=== PATIENT | male | born 1975 | race Caucasian/White ===

== ENCOUNTER 2019-09-23 07:17 | Outpatient (REF) | payer OTHER, SELFPAY ==
[2019-09-23 13:02] LABS: HGB 15.7 g/dL (13.5-17.5); Mean Corp. HGB Concentration 33.4 g/dL (32.0-36.0); Mean Corpuscular Hemoglobin 28.9 pg (27.0-33.0); Mean Corpuscular Volume 86.6 fL (80-95); Mean Platelet Volume 9.9 fL (8.0-11.0); Platelet Count 277 x1000/uL (130-400); RBC 5.43 m/cumm (4.50-6.00); RBC Distribution Width 13.6 % (11.8-14.1); White Blood Cell Count 7.98 k/cumm (4.4-10.8)
[2019-09-23 14:02] LABS: ALT 69 U/L (16-63); AST 22 U/L (15-37); Albumin 4.1 g/dL (3.4-5.0); Alkaline Phosphatase 126 U/L (46-116); Anion Gap 9.9 mmol/L (3-11); BUN 14 mg/dL (7-18); Bilirubin, Total 0.6 mg/dL (0.2-1.0); CO2 29.1 mmol/L (21.0-32.0); Calcium 9.1 mg/dL (8.5-10.1); Calculated LDL 128 mg/dL; Chloride 105 mmol/L (98-107); Cholesterol 214 mg/dL (<200); Glucose 88 mg/dL (74-106); HDL Cholesterol 32 mg/dL (40-60); Potassium 4.8 mmol/L (3.5-5.1); Sodium 144 mmol/L (136-145); Total Protein 7.3 g/dL (6.4-8.2); Triglyceride 273 mg/dL (<150)
== END 2019-09-23 07:37 ==
LOC: LOS 07:17
PROVIDERS: PCP Family Medicine; Visit Provider Family Medicine
DX: R53.83 Other fatigue (principal); Z13.220 Encounter for screening for lipoid disorders
CPT/HCPCS: 36415; 80053; 80061; 85027; 84443

== ENCOUNTER 2020-10-28 03:06 | Outpatient (CLI) | payer OTHER, SELFPAY ==
[2020-10-28 15:15] LABS: ALT 59 U/L (16-63); AST 24 U/L (15-37); Albumin 4.5 g/dL (3.4-5.0); Alkaline Phosphatase 117 U/L (46-116); Anion Gap 11.7 mmol/L (3-11); BUN 14 mg/dL (7-18); Bilirubin, Total 0.9 mg/dL (0.2-1.0); CO2 28.3 mmol/L (21.0-32.0); Calcium 9.4 mg/dL (8.5-10.1); Calculated LDL 202 mg/dL (<100); Chloride 102 mmol/L (98-107); Cholesterol 287 mg/dL (<200); Glucose 92 mg/dL (74-106); HDL Cholesterol 36 mg/dL (40-60); Magnesium 2.1 mg/dL (1.8-2.4); Potassium 4.1 mmol/L (3.5-5.1); Sodium 142 mmol/L (136-145); Triglyceride 247 mg/dL (<150)
[2020-10-28 15:26] LABS: HCT 50.1 % (40.0-50.0); HGB 16.9 g/dL (13.5-17.5); MCH 29.5 pg (27.0-33.0); MCHC 33.7 % (32.0-36.0); MCV 87.6 fL (80-95); MPV 10.1 fL (8.0-11.0); Platelet Count 279 10^3/uL (130-400); RBC 5.72 10^6/uL (4.36-5.78); RDW 13.2 % (11.8-14.1); WBC 8.73 10^3/uL (4.4-10.8)
== END 2020-10-28 03:07 | disposition home or self-care (01) ==
LOC: LBO 03:06
PROVIDERS: PCP Family Medicine; Visit Provider Family Medicine
DX: I10 Essential (primary) hypertension (principal); K22.70 Barrett's esophagus without dysplasia; E83.42 Hypomagnesemia
CPT/HCPCS: 36415; 80053; 80061; 85027; 83735

== ENCOUNTER 2021-04-08 04:52 | Outpatient (CLI) | payer OTHER, SELFPAY ==
[2021-04-08 16:05] LABS: Calculated LDL 119 mg/dL (<100); Cholesterol 179 mg/dL (<200); HDL Cholesterol 38 mg/dL (40-60); Triglyceride 112 mg/dL (<150)
== END 2021-04-08 04:53 | disposition home or self-care (01) ==
LOC: LBO 04:52
PROVIDERS: PCP Family Medicine; Visit Provider Family Medicine
DX: E78.5 Hyperlipidemia, unspecified (principal)
CPT/HCPCS: 36415; 80061

== ENCOUNTER 2021-07-26 15:43 | Emergency (ER) | payer OTHER, SELFPAY ==
[2021-07-26 15:48] VITALS: BP 163/97; PULSE 122; RESP 16; TEMP 36.9; O2SAT 99
--- NOTE | 2021-07-26 16:32 | W.ED.GENAD ---
Discharge Plan Disposition Patient Disposition: HOME Condition: Stable Discharge Details Clinical Impression: Abdominal pain Primary Care Provider: Luis Perrin ED Provider: Shahzad Schulte Home Meds and New Rx's Prescriptions: Continued albuterol sulfate [ProAir HFA] 90 mcg/actuation HFA aerosol inhaler 2 puff Inhalation prior to exercise PRN (Reason: bronchospasm) Qty: 1 RF: 3 esomeprazole magnesium 20 mg capsule,delayed release(DR/EC) 20 mg PO DAILY Qty: 90 RF: 4 rosuvastatin [Crestor] 5 mg tablet 5 mg PO DAILY Qty: 90 RF: 4 lisinopril 10 mg tablet 20 mg PO DAILY Qty: 90 RF: 4 Hold Instructions: Home Medication placed on hold at Doctor's office Discharge Instructions Instructions: Abdominal Pain (ED) Additional Instructions: Please follow-up with your primary care physician. Call tomorrow to arrange timely follow-up. If pain persists, additional diagnostic testing may be necessary. Return to the emergency department immediately for any worsening or new concerning symptoms. Referrals: Luis Perrin MD [Primary Care Provider] - Discharge Data Discharge Date/Time-TO BE ENTERED AT DEPARTURE: 07/26/21 19:38 Medical Decision Making 1748 --46-year-old male with history of hypertension and hyperlipidemia, prior cholecystectomy, here with right upper quadrant abdominal pain but has had intermittently for months and much worse today. Patient is tachycardic and hypertensive. Patient minimally tender to deep palpation right upper quadrant. Patient does note pain is moderate to severe. Plan to obtain CT of the abdomen pelvis with IV contrast to assess for acute intra-abdominal surgical process Patient also with some mild paresthesia right gnosticist area. He has no associated headache or visual changes. No associated rash. Unclear etiology for symptoms at this point. Consider early zoster. I did discuss this with the patient what to look out for to 1853 --CT the abdomen pelvis was interpreted by radiology: IMPRESSION: No evidence of acute abdominal or pelvic process. Labs reviewed and nondiagnostic. Patient reassessed and pain has improved. He appears comfortable. Patient notes heart rate is always elevated. He states that it recent primary care appointment his physician looked back through record and noted heart rate has been above 100 for years. Plan for discharge with outpatient PCP follow-up. HPI General Mode of arrival: ambulatory. Date/Time Provider Initiated Documentation: 07/26/21 15:57. Limitations to Documentation: no limitations. Information obtained by: patient. HPI Narrative: 46-year-old male with history of hypertension and hyperlipidemia, prior cholecystectomy, presents with chief complaint of right upper quadrant abdominal pain. Patient notes she has had intermittent pain in his right upper quadrant that is typically mild for the past few months. Pain more persistent and severe today. No modifiers. No associated nausea vomiting. No fever. Patient also notes some mild tingling right gnosticist that started a couple days ago and has persisted. No associated rash. No weakness. No other numbness or tingling. No headache. No visual changes. Related Data Home Medications Medication Instructions Recorded Confirmed albuterol sulfate 90 mcg/actuation 2 puff INHALATION prior to 12/16/20 07/26/21 aerosol inhaler exercise PRN #1 inhaler esomeprazole magnesium 20 mg 20 mg PO DAILY #90 cap 12/16/20 07/26/21 capsule,delayed release rosuvastatin 5 mg tablet 5 mg PO DAILY #90 tab 04/12/21 07/26/21 lisinopril 10 mg tablet 20 mg PO DAILY #90 tab 07/05/21 07/26/21 Previous Rx's Medication Instructions Recorded albuterol sulfate 90 mcg/actuation 2 puff INHALATION prior to 12/16/20 aerosol inhaler exercise PRN #1 inhaler esomeprazole magnesium 20 mg 20 mg PO DAILY #90 cap 12/16/20 capsule,delayed release rosuvastatin 5 mg tablet 5 mg PO DAILY #90 tab 04/12/21 lisinopril 10 mg tablet 20 mg PO DAILY #90 tab 07/05/21 Allergies Allergy/AdvReac Type Severity Reaction Status Date / Time peach Allergy Severe difficulty Verified 07/26/21 19:02 swallowing Environmental Allergy Intermediate rhinorrhea Uncoded 07/26/21 19:02 General Stated Complaint: GenMedical PRAVEENA: 3 Review of Systems All systems reviewed & are unremarkable except as noted in HPI and below Constitutional Constitutional: Denies fever(s) Cardiovascular Cardiovascular: Denies chest pain and Denies dyspnea Respiratory Respiratory: Denies cough and Denies dyspnea Gastrointestinal Gastrointestinal: Reports as per HPI [facility] Active Problem List Essential hypertension (Acute) Hyperlipidemia (Acute) Leal esophagus (Acute) Essential hypertension (Acute) URI (upper respiratory infection) (Acute) Conjunctivitis (Acute) Surgical History Cholecystectomy (06/20/14) Repair, ACL (~2002) Family History Mother Diabetes Father Diabetes Heart disease Sister No problems noted. Brother No problems noted. Brother No problems noted. Grandfather Diabetes Personal history of malignant neoplasm PROSTATE Heart disease Grandfather Diabetes Grandmother Diabetes Heart disease Grandmother No problems noted. Social History Smoking/Tobacco Use Status: Never Second Hand Exposure: Yes Smoking risk assessment performed?: Yes Alcohol Intake: current Alcohol Intake frequency: a few times a month Alcohol type: beer and hard liquor Drug use: Never Adopted: No Household members: family Housing: house Do you need help understanding health information?: Rarely Pets and animals: Yes Pets and animals: cat(s) and fish Sexually active: Yes Do you think of yourself as: straight/heterosexual Current gender identity: male What is your relationship status?: How often do you talk on the phone with friends or family?: never How often do you get together with friends or relatives?: three or more times per week How often do you attend religious or scientologist services?: 1-3 times per year Panel score (0-1 are the most socially isolated patients): 2 What type of physical activity do you participate in: walking Duration: 15-30 minutes/day Frequency: 3-4 times per week Alice/Spiritism: No preference Special alice needs: No Seatbelt use: always Helmet use: Yes Helmet use: always Drive intox 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 Exam Const General: cooperative and no acute distress HENMT Head: normocephalic and atraumatic Face and sinus: normal facial exam and face symmetric Mouth: moist mucous membranes Eyes Conjunctivae: normal conjunctivae Sclera: normal sclerae Neck Neck: trachea midline and supple Resp Auscultation: clear to auscultation bilaterally, no rales, no rhonchi and no wheezes Cardio Rate: tachycardic Rhythm: regular rhythm Heart Sounds: no murmurs GI Palpation: soft, not firm, no guarding, no masses, not rigid, tender in the RUQ and No ascites Auscultation: normal bowel sounds Skin General skin exam: no rashes or lesions noted Neuro General: patient alert, patient awake, patient oriented x3 and tone normal Extrem General: no calf tenderness and no edema Psych Appearance: grossly normal Mental Status: mental status grossly normal Speech and Movement: speech and movement normal Course Vital Signs Vital signs: Vital Signs Temperature 36.9 C 07/26/21 15:48 Pulse 122 H 07/26/21 15:48 Respiratory Rate 16 07/26/21 15:48 Blood Pressure 163/97 H 07/26/21 15:48 Pulse Oximetry 99 07/26/21 15:48 Temperature 36.9 C 07/26/21 15:48 Temperature Source Skin 07/26/21 15:48 Pulse 122 H 07/26/21 15:48 Respiratory Rate 16 07/26/21 15:48 Respiratory Effort Non-Labored 07/26/21 16:01 Respiratory Depth Normal 07/26/21 16:01 Respiratory Pattern Normal 07/26/21 16:01 Blood Pressure 163/97 H 07/26/21 15:48 Blood Pressure Position Sitting 07/26/21 15:48 Pulse Oximetry 99 07/26/21 15:48 Oxygen Delivery Method Room Air 07/26/21 15:48 Oxygen Flow Rate 0 07/26/21 15:48 Pain Level 7 07/26/21 15:48 PAWSS Have you Been Recently Intoxicated or Drunk Within the Last 30 days?: No Have you Ever Experienced Previous Episodes of Alcohol Withdrawal?: No Have you ever Experienced Withdrawal Seizures?: No Have you ever Experienced Delirium Tremens(DT)s?: No Have you ever undergone Alcohol Rehabilitation Treatment (i.e, inpt ot outpatient treatment programs)?: No Have you ever Experienced Blackouts?: No Have you ever Combined Alcohol with other Downers within the last 90 days?: No Have you ever Combined Alcohol with any other Substance of Abuse during the last 90 days?: No Positive Blood Alcohol level on Presentation? [PCS.BAL]: No Evidence of Increased Autonomic Activity (i.e. HR>120, tremor, sweating, agitation, nausea)?: No Result: 0
[2021-07-26 16:33] LABS: Abs Immature Grans 0.02 10^3/uL (0.0-0.06); Absolute Basophil Count 0.04 10^3/uL (0.0-0.2); Absolute Eosinophil Count 0.16 10^3/uL (0.0-0.7); Absolute Lymphocyte Count 2.05 10^3/uL (1.2-3.4); Absolute Monocyte Count 0.61 10^3/uL (0.1-0.8); Absolute Neutrophil Count 6.28 10^3/uL (1.2-6.7); Basophils % 0.4; Eosinophils % 1.7; HCT 47.9 % (40.0-50.0); HGB 15.9 g/dL (13.5-17.5); Immature Grans % 0.2; Lymphocytes % 22.4; MCH 29.1 pg (27.0-33.0); MCHC 33.2 % (32.0-36.0); MCV 87.6 fL (80-95); MPV 9.8 fL (8.0-11.0); Monocytes % 6.7; Neutrophils % 68.6; Nucleated RBC 0 %; Platelet Count 258 10^3/uL (130-400); RBC 5.47 10^6/uL (4.36-5.78); RDW 12.8 % (11.8-14.1); RDW-SD 41.2 fL; WBC 9.16 10^3/uL (4.4-10.8)
[2021-07-26 16:47] LABS: ALT 55 U/L (16-63); AST 26 U/L (15-37); Albumin 4.3 g/dL (3.4-5.0); Alkaline Phosphatase 117 U/L (46-116); Anion Gap 9.8 mmol/L (3-11); BUN 13 mg/dL (7-18); Bilirubin, Total 0.6 mg/dL (0.2-1.0); CO2 27.2 mmol/L (21.0-32.0); Calcium 9.2 mg/dL (8.5-10.1); Chloride 104 mmol/L (98-107); Glucose 124 mg/dL (74-106); Lipase 78 U/L (73-393); Sodium 141 mmol/L (136-145); Total Protein 7.7 g/dL (6.4-8.2)
[2021-07-26 17:17] VITALS: BP 148/90; PULSE 118; RESP 18; TEMP 35.3; O2SAT 96
[2021-07-26 17:25] VITALS: BP 161/97; PULSE 112; RESP 16; TEMP 36.6; O2SAT 100
[2021-07-26] MEDS: Lactated Ringers 500 ML IV (18:00)
--- NOTE | 2021-07-26 18:03 | DI.CT_ITS ---
Exam(s) CT ABDOMEN PELVIS W EXAM: CT ABDOMEN PELVIS W CLINICAL HISTORY: ruq abd pain TECHNIQUE: COMPARISON: No exams were available for comparison FINDINGS: CT examination of the abdomen and pelvis was performed with bolus infusion of 100 cc of Omnipaque 350 . Images obtained through the lung bases are unremarkable. Visualized cardiomediastinal structures appear intact no evidence disease pulmonary arterial. Note i s made questionable distal esophagus esophagoscopy considered. The liver appears normal with no evidence of a focal mass. Spleen is unremarkable in appearance.. Prior cholecystectomy noted. No biliary dilatation. Pancreas is unremarkable in appearance. Adrenals appear normal bilaterally. Kidneys appear normal with no evidence of renal mass, hydronephrosis, or nephrolithiasis. Incidental small cyst. Unremarkable bladder. There is no evidence of abdominal or pelvic adenopathy. Abdominal aorta is of normal diameter and no abnormality is seen involving major visceral branches.. Appendix is normal. No evidence diverticulitis or bowel obstruction. No significant abdominal wall hernia seen. Impression: Question wall thickening esophagitis not excluded. Otherwise unremarkable examination. RADIATION DOSE DELIVERED: 1,601.89mGy.cm Total DLP 1,601.89mGy.cm Total DLP CTDIvol DATA REPOSITORY: All CT scans at this facility are submitted to the National Radiology Data Registry (NRDR) Dose Index Registry (DIR) with the [employer] (ACR). RADIATION OPTIMIZATION: All CT scans at this facility use at least one of these dose optimization te chniques: automated exposure control; mA and/or kV adjustment per patient size (includes targeted exa ms where dose is matched to clinical indication); or iterative reconstruction.
[2021-07-26] MEDS: Normal Saline - Diluent 50 ML VIAL IV (18:04)
[2021-07-26] MEDS: Omnipaque 350 MG/ML 100 ML BTL IJ (18:04)
[2021-07-26 18:10] VITALS: BP 144/105; PULSE 114
[2021-07-26 18:11] VITALS: BP 144/94; PULSE 116; RESP 16; TEMP 36.6
--- NOTE | 2021-07-26 18:39 | DI.VRAD_ITS ---
PROCEDURE INFORMATION: Exam: CT Abdomen And Pelvis With Contrast Exam date and time: 07/26/2021 4:32 PM Age: 46 years old Clinical indication: Abdominal pain; Generalized; Patient HX: Ruq abd pain TECHNIQUE: Imaging protocol: Computed tomography of the abdomen and pelvis with contrast. Radiation optimization: All CT scans at this facility use at least one of these dose optimization techniques: automated exposure control; mA and/or kV adjustment per patient size (includes targeted exams where dose is matched to clinical indication); or iterative reconstruction. Contrast material: OMNI 350; Contrast volume: 100 ml; Contrast route: INTRAVENOUS (IV); COMPARISON: No relevant prior studies available. FINDINGS: Lungs: The visualized portions of the lung bases are normal. Liver: Normal. No mass. Gallbladder and bile ducts: There has been a cholecystectomy. Pancreas: Normal. No ductal dilation. Spleen: Normal. No splenomegaly. Adrenal glands: Normal. No mass. Kidneys and ureters: Cortical hypodensity measuring 1.1 cm within the upper pole of the right kidney compatible with a renal cyst. Otherwise the kidneys are unremarkable. No hydronephrosis. Stomach and bowel: Unremarkable. No obstruction. No mucosal thickening. Appendix: No evidence of appendicitis. Intraperitoneal space: Unremarkable. No free air. No significant fluid collection. Vasculature: Unremarkable. No abdominal aortic aneurysm. Lymph nodes: Unremarkable. No enlarged lymph nodes. Urinary bladder: Unremarkable as visualized. Reproductive: Unremarkable as visualized. Bones/joints: Unremarkable. No acute fracture. Soft tissues: Unremarkable. IMPRESSION: No evidence of acute abdominal or pelvic process. Dictated and Authenticated by: Pio Gallagher MD. Ordering:PARMINDER Pike MD
== END 2021-07-26 19:38 | disposition home or self-care (01) ==
PROVIDERS: Emergency Provider Student in an Organized Health Care Education/Training Program; PCP Family Medicine
DX: R10.11 Right upper quadrant pain (principal); R00.0 Tachycardia, unspecified; I10 Essential (primary) hypertension; R20.2 Paresthesia of skin
CPT/HCPCS: 36415; 80053; 83690; 96360; 99285; 74177; 85025; 99284; J3490

== ENCOUNTER 2021-12-15 14:18 | Emergency (ER) | payer OTHER, SELFPAY ==
[2021-12-15] VITALS (43 sets, daily range): BP systolic 125–141; BP diastolic 74–92; PULSE 69–101; RESP 14–25; TEMP 37.1–37.2; O2SAT 92–98
--- NOTE | 2021-12-15 14:15 | RT.EKG_ITS ---
APPROVED REPORT Exam: Resting ECG Reason for Exam: chest pain Patient Location: E HR:98 bpm ECG Measurements Heart Rate 98 AXIS NJ 156 P 48 QRSd 102 QRS -21 QT 355 T 71 QTc 454 Conclusion Sinus rhythm...normal P axis, V-rate 60- 99 no STEMI, non-diagnostic EKG
[2021-12-15] MEDS: Aspirin 81 MG CHEW 324 MG CH (14:39)
--- NOTE | 2021-12-15 14:39 | ED.GENADUL_ITS ---
Discharge Plan Disposition Patient Disposition: STILL A PATIENT Discharge Details Chief Complaint: Chest Pain Primary Care Provider: Luis Perrin ED Provider: Tevin Payan Home Meds and New Rx's Prescriptions: No Action albuterol sulfate [ProAir HFA] 90 mcg/actuation HFA aerosol inhaler 2 puff Inhalation prior to exercise PRN (Reason: bronchospasm) Qty: 1 3RF esomeprazole magnesium 20 mg capsule,delayed release(DR/EC) 20 mg PO DAILY Qty: 90 4RF metoprolol succinate 25 mg tablet extended release 24 hr 25 mg PO DAILY Qty: 90 3RF rosuvastatin [Crestor] 5 mg tablet 5 mg PO DAILY Qty: 90 4RF lisinopril 20 mg tablet 20 mg PO DAILY Qty: 90 3RF Medical Decision Making 46-year-old gentleman presents for intermittent 1 month history of anterior superior chest discomfort, nothing makes it worse or better. Denies any sympt oms associated with his chest discomfort. Today he felt as if the chest pain in general is worse than it has been over the past month which prompted his ER visit. Clinically he appears well, nontoxic, during my examination his heart rate is in the 80s but upon presentation his pulse was 101. Will initiate cardiac work-up including a D-dimer, and give a single full dose aspirin. If dimer is positive will obtain CTA of the chest although based upon his presentation low suspicion for ACS, dissection, PE, etc. At time of sign out, laboratory values have been unremarkable for any obvious emergent process. Troponin less than 50. D-dimer 212. Will give a single dose of Toradol. Patient is agreeable to awaiting a delta troponin. If delta troponin is unremarkable and patient remained stable, then likely outpatient follow-up through PCP and stress test is reasonable Medical Records Medical records reviewed: Yes I reviewed the patient's medical records. Imaging Data Radiologic Study: Attestation: I personally reviewed and interpreted this imaging study as macy metz: Imaging: X-Ray Radiologist's impression: Exam(s) XR CHEST 2V PA LATERAL EXAM: XR CHEST 2V PA LATERAL CLINICAL HISTORY: chest pain TECHNIQUE: 2D digital imaging was performed. COMPARISON: CR CHEST 2 VIEWS PA,LAT from 10/29/2013 FINDINGS: MEDIASTINUM: Normal. HEART: Normal. PULMONARY VASCULATURE: Normal. LUNGS: Clear. PLEURAL SPACE: No pleural effusion or pneumothorax. BONE:Unremarkable for age. IMPRESSION: No acute abnormality. Lab Data Lab results reviewed: Yes I reviewed the patient's lab results. Labs: Laboratory Tests Range/Units 12/15/21 12/15/21 12/15/21 14:46 14:46 14:46 WBC (4.4-10.8) 10^3/uL 7.47 RBC (4.36-5.78) 10^6/uL 5.19 Hgb (13.5-17.5) g/dL 15.1 Hct (40.0-50.0) % 45.6 MCV (80-95) fL 87.9 MCH (27.0-33.0) pg 29.1 MCHC (32.0-36.0) % 33.1 RDW (11.8-14.1) % 13.2 Plt Count (130-400) 10^3/uL 221 MPV (8.0-11.0) fL 9.8 Immature Gran % 0.4 Neutrophils % 57.7 Lymphocytes % 31.2 Monocytes % 8.6 Eosinophils % 1.6 Basophils % 0.5 Nucleated RBC % % 0 Absolute Neutrophils (1.2-6.7) 10^3/uL 4.31 Absolute Lymphocytes (1.2-3.4) 10^3/uL 2.33 Absolute Monocytes (0.1-0.8) 10^3/uL 0.64 Absolute Eosinophils (0.0-0.7) 10^3/uL 0.12 Absolute Basophils (0.0-0.2) 10^3/uL 0.04 D-Dimer (<500) ng/mlFEU 212 Sodium (136-145) mmol/L 139 Potassium (3.5-5.1) mmol/L 4.0 Chloride (98-107) mmol/L 104 Carbon Dioxide (21.0-32.0) mmol/L 28.3 Anion Gap (3-11) mmol/L 6.7 BUN (7-18) mg/dL 13 Creatinine (0.70-1.30) mg/dL 1.1 Estimated GFR/1.73 m2 (mL/min/1.73m2) >= 60.00 Glucose (74-106) mg/dL 102 Calcium (8.5-10.1) mg/dL 9.1 Magnesium (1.8-2.4) mg/dL 2.0 Total Bilirubin (0.2-1.0) mg/dL 0.7 AST (15-37) U/L 38 H ALT (16-63) U/L 78 H Alkaline Phosphatase (46-116) U/L 123 H Troponin I (<or=60) ng/L < 50 Total Protein (6.4-8.2) g/dL 7.4 Albumin (3.4-5.0) g/dL 4.0 ECG Data Attestation: I personally reviewed and interpreted this ECG (s) as follows: Interpretation: Please see official report by Dr. Schulte. Sinus rhythm, ventricular rate of 98, no STEMI. HPI General Mode of arrival: ambulatory . Date/Time Provider Initiated Documentation: 12/15/21 14:30 . Limitations to Documentation: no limitations . Information obtained by: patient . History of Present Illness 46 year old M presents to the emergency department with the chief complaint of chest pain, described as moderate, with intensity rated at 4. Quality is described as aching, and is localized to the chest. Patient reports no radiation. Patient started experiencing this month(s) (1) and it has been intermittent. improves with No relieving factors improve symptom(s), No exacerbating factors reported . Patient notes no other symptoms.. Patient did receive the following treatments prior to arrival, none Related Data Home Medications Medication Instructions Recorded Confirmed albuterol sulfate 90 mcg/actuation 2 puff INHALATION prior to 12/16/20 12/15/21 aerosol inhaler (ProAir HFA) exercise PRN #1 inhaler esomeprazole magnesium 20 mg 20 mg PO DAILY #90 cap 12/16/20 12/15/21 capsule,delayed release rosuvastatin 5 mg tablet (Crestor) 5 mg PO DAILY #90 tab 04/12/21 12/15/21 lisinopril 20 mg tablet 20 mg PO DAILY #90 tab 08/16/21 12/15/21 metoprolol succinate 25 mg 25 mg PO DAILY #90 tab 11/08/21 12/15/21 tablet,extended release 24 hr Previous Rx's Medication Instructions Recorded albuterol sulfate 90 mcg/actuation 2 puff INHALATION prior to 12/16/20 aerosol inhaler (ProAir HFA) exercise PRN #1 inhaler esomeprazole magnesium 20 mg 20 mg PO DAILY #90 cap 12/16/20 capsule,delayed release rosuvastatin 5 mg tablet (Crestor) 5 mg PO DAILY #90 tab 04/12/21 lisinopril 20 mg tablet 20 mg PO DAILY #90 tab 08/16/21 metoprolol succinate 25 mg 25 mg PO DAILY #90 tab 11/08/21 tablet,extended release 24 hr Allergies Allergy/AdvReac Type Severity Reaction Status Date / Time peach Allergy Severe difficulty Verified 12/15/21 14:30 swallowing Environmental Allergy Intermediate rhinorrhea Uncoded 12/15/21 14:30 General Stated Complaint: Chest Pain PRAVEENA: 2 Review of Systems Constitutional Constitutional: Denies fatigue, Denies fever(s) and Denies headache(s) ENT Ears, Nose, Mouth, and Throat: Denies headache(s) and Denies neck pain Cardiovascular Cardiovascular: Reports chest pain and Denies dyspnea Respiratory Respiratory: Denies cough and Denies dyspnea Gastrointestinal Gastrointestinal: Denies abdominal pain, Denies nausea and Denies vomiting Musculoskeletal Musculoskeletal: Denies back pain, Denies neck pain, Denies numbness and Denies tingling Integumentary/Breasts Skin/Breast: Denies rash Neurologic Neurologic: Denies headache(s), Denies numbness and Denies tingling Endocrine Endocrine: Denies fatigue Hematologic/Lymphatic Hematologic/Lymphatic: Denies easy bleeding and Denies easy bruising PFSH All Active Problems Tubular adenoma of colon (Acute) colono due 2020 Irritable colon (Chronic) Tachycardia (Acute) 11/2021-longstanding chronic sinus tachycardia, negative cardiac work-up 2013 Essential hypertension (Acute) Hyperlipidemia (Acute) Leal esophagus (Acute) Essential hypertension (Acute) Surgical History Cholecystectomy (06/20/14) Repair, ACL (~2002) Family History Mother Diabetes Father Diabetes Heart disease Sister No problems noted. Brother No problems noted. Brother No problems noted. Grandfather Diabetes Personal history of malignant neoplasm PROSTATE Heart disease Grandfather Diabetes Grandmother Diabetes Heart disease Grandmother No problems noted. Social History Smoking/Tobacco Use Status: Never Second Hand Exposure: Yes Smoking risk assessment performed?: Yes Alcohol Intake: current Alcohol Intake frequency: a few times a month Alcohol type: beer and hard liquor Drug use: Never Adopted: No Household members: family Housing: house Do you need help understanding health information?: Rarely Pets and animals: Yes Pets and animals: cat(s) and fish Sexually active: Yes Do you think of yourself as: straight/heterosexual Current gender identity: male What is your relationship status?: How often do you talk on the phone with friends or family?: never How often do you get together with friends or relatives?: three or more times per week How often do you attend baptist or latter day services?: 1-3 times per year Panel score (0-1 are the most socially isolated patients): 2 What type of physical activity do you participate in: walking Duration: 15-30 minutes/day Frequency: 3-4 times per week Alice/Zoroastrianism: No preference Special alice needs: No Seatbelt use: always Helmet use: Yes Helmet use: always Drive intox or ride w/intox truck driver rubbish collector: No Do you feel safe at home: Yes Do you feel safe in your relationship?: Yes Exam Const General: cooperative, healthy appearing, comfortable and no acute distress Orientation: alert, awake and oriented x3 HENMT Head: normal to inspection, normocephalic and atraumatic Eyes General: appearance normal, both eyes and all related structures Conjunctivae: conjunctivae normal Neck Neck: normal visual inspection, full ROM, trachea midline and supple Chest Chest: normal inspection of the chest and normal palpation of entire chest wall Resp Effort & Inspection: normal respiratory effort and able to speak in complete sentences Auscultation: clear to auscultation bilaterally Cardio Rate: regular rate Rhythm: regular rhythm GI Palpation: soft, not firm, no guarding, no pulsatile masses and nontender Back/Spine/Pelvis Back: No back tenderness Skin General skin exam: no rashes or lesions noted Neuro General: patient alert, patient awake, moves all extremities and no focal motor deficits Cognition: normal cognition Speech: speech normal Gait: normal gait Sensory Exam: no sensory deficits noted Extrem General: normal to inspection, full ROM, capillary refill normal, no pedal edema and no calf tenderness Psych Appearance: grossly normal Mental Status: mental status grossly normal Course Vital Signs Vital signs: Vital Signs Temperature 37.1 C 12/15/21 14:25 Pulse 101 H 12/15/21 14:25 Respiratory Rate 20 12/15/21 14:25 Blood Pressure 141/91 H 12/15/21 14:25 Pulse Oximetry 98 12/15/21 14:25 Temperature 37.1 C 12/15/21 14:25 Temperature Source Skin 12/15/21 14:25 Pulse 101 H 12/15/21 14:25 Respiratory Rate 16 12/15/21 14:34 Respiratory Effort 12/15/21 14:34 Respiratory Depth Normal 12/15/21 14:34 Respiratory Pattern Normal 12/15/21 14:34 Blood Pressure 141/91 H 12/15/21 14:25 Pulse Oximetry 98 12/15/21 14:25 Oxygen Delivery Method Room Air 12/15/21 14:25 Oxygen Flow Rate 0 12/15/21 14:25 Pain Level 5 12/15/21 14:34
[2021-12-15 14:56] LABS: Abs Immature Grans 0.03 10^3/uL (0.0-0.06); Absolute Basophil Count 0.04 10^3/uL (0.0-0.2); Absolute Eosinophil Count 0.12 10^3/uL (0.0-0.7); Absolute Lymphocyte Count 2.33 10^3/uL (1.2-3.4); Absolute Monocyte Count 0.64 10^3/uL (0.1-0.8); Absolute Neutrophil Count 4.31 10^3/uL (1.2-6.7); Basophils % 0.5; Eosinophils % 1.6; HCT 45.6 % (40.0-50.0); HGB 15.1 g/dL (13.5-17.5); Immature Grans % 0.4; Lymphocytes % 31.2; MCH 29.1 pg (27.0-33.0); MCHC 33.1 % (32.0-36.0); MCV 87.9 fL (80-95); MPV 9.8 fL (8.0-11.0); Monocytes % 8.6; Neutrophils % 57.7; Nucleated RBC 0 %; Platelet Count 221 10^3/uL (130-400); RBC 5.19 10^6/uL (4.36-5.78); RDW 13.2 % (11.8-14.1); RDW-SD 42.8 fL; WBC 7.47 10^3/uL (4.4-10.8)
[2021-12-15 15:15] LABS: ALT 78 U/L (16-63); AST 38 U/L (15-37); Alkaline Phosphatase 123 U/L (46-116); Anion Gap 6.7 mmol/L (3-11); BUN 13 mg/dL (7-18); Bilirubin, Total 0.7 mg/dL (0.2-1.0); CO2 28.3 mmol/L (21.0-32.0); CREATININE 1.1 mg/dL (0.70-1.30); Calcium 9.1 mg/dL (8.5-10.1); Chloride 104 mmol/L (98-107); Glucose 102 mg/dL (74-106); Sodium 139 mmol/L (136-145); Total Protein 7.4 g/dL (6.4-8.2); Troponin I < 50 ng/L (<or=60)
--- NOTE | 2021-12-15 15:16 | DI.RAD_ITS ---
Exam(s) XR CHEST 2V PA LATERAL EXAM: XR CHEST 2V PA LATERAL CLINICAL HISTORY: chest pain TECHNIQUE: 2D digital imaging was performed. COMPARISON: CR CHEST 2 VIEWS PA,LAT from 10/29/2013 FINDINGS: MEDIASTINUM: Normal. HEART: Normal. PULMONARY VASCULATURE: Normal. LUNGS: Clear. PLEURAL SPACE: No pleural effusion or pneumothorax. BONE:Unremarkable for age. IMPRESSION: No acute abnormality. DATA REPOSITORY: RADIATION DOSE DELIVERED:
[2021-12-15 15:44] LABS: D-Dimer 212 ng/mlFEU (<500)
[2021-12-15] MEDS: Ketorolac 30 MG/ML VIAL IVP (15:56)
[2021-12-15 17:42] LABS: Troponin I < 50 ng/L (<or=60)
--- NOTE | 2021-12-15 17:49 | RT.EKG_ITS ---
APPROVED REPORT Exam: Resting ECG Reason for Exam: chest pain Patient Location: E HR:70 bpm ECG Measurements Heart Rate 70 AXIS TX 135 P 24 QRSd 102 QRS -16 QT 388 T 1 QTc 420 Conclusion Sinus rhythm...normal P axis, V-rate 60- 99
--- NOTE | 2021-12-15 18:12 | ED.PROG_ITS ---
Date of service: 12/15/21 Time of Service: 16:10 Medical Decision Making Care of patient assumed from DAVION Lennon. Please see initial documentation, HPI, review of systems and plan of care. Did not introduce myself to patient and assessed patient with no obvious physical exam findings. Patient still states some slight pain but was just given Toradol by previous provider. Review of initial labs show negative troponin, negative D-dimer, mild transaminase but review of previous records does show that patient has had similar findings in the past. Discussed this with patient and that he should follow-up with primary care provider but at this time do not feel this is any clinical correlation. We will continue to reassess patient. Patient pending repeat EKG, delta troponin Reviewed delta troponin which was nondetectable and EKG. Please see physician interpretation of EKG that shows normal sinus rhythm without worrisome acute findings. Patient reassessed and states that he is virtually pain-free which I feel is reassuring. Patient placed upon follow-up list to follow-up with primary care provider for consideration of outpatient stress test given patient's history of hypertension, and patient being on multiple hypertensive medications along with statin. At this time I do not feel that patient needs further admission given overall negative work-up. This patient may require cardiac stress testing on an outpatient basis and arrangements for this may be made during their follow-up visit with their primary care physician. The patient understands that at this time there is no evidence for a more malignant underlying process, but the patient also understands that early in the process of an illness, an emergency department workup can be falsely reassuring. Routine discharge counseling was given to the patient and the patient understands that worsening, changing, or persistent sy mptoms should prompt an immediate call or follow up with their primary physician or the emergency department immediately. The importance of close follow up was also discussed with the patient. Lab Data Lab results reviewed: Yes I reviewed the patient's lab results. Labs: Laboratory Tests Range/Units 12/15/21 12/15/21 12/15/21 14:46 14:46 14:46 WBC (4.4-10.8) 10^3/uL 7.47 RBC (4.36-5.78) 10^6/uL 5.19 Hgb (13.5-17.5) g/dL 15.1 Hct (40.0-50.0) % 45.6 MCV (80-95) fL 87.9 MCH (27.0-33.0) pg 29.1 MCHC (32.0-36.0) % 33.1 RDW (11.8-14.1) % 13.2 Plt Count (130-400) 10^3/uL 221 MPV (8.0-11.0) fL 9.8 Immature Gran % 0.4 Neutrophils % 57.7 Lymphocytes % 31.2 Monocytes % 8.6 Eosinophils % 1.6 Basophils % 0.5 Nucleated RBC % % 0 Absolute Neutrophils (1.2-6.7) 10^3/uL 4.31 Absolute Lymphocytes (1.2-3.4) 10^3/uL 2.33 Absolute Monocytes (0.1-0.8) 10^3/uL 0.64 Absolute Eosinophils (0.0-0.7) 10^3/uL 0.12 Absolute Basophils (0.0-0.2) 10^3/uL 0.04 D-Dimer (<500) ng/mlFEU 212 Sodium (136-145) mmol/L 139 Potassium (3.5-5.1) mmol/L 4.0 Chloride (98-107) mmol/L 104 Carbon Dioxide (21.0-32.0) mmol/L 28.3 Anion Gap (3-11) mmol/L 6.7 BUN (7-18) mg/dL 13 Creatinine (0.70-1.30) mg/dL 1.1 Estimated GFR/1.73 m2 (mL/min/1.73m2) >= 60.00 Glucose (74-106) mg/dL 102 Calcium (8.5-10.1) mg/dL 9.1 Magnesium (1.8-2.4) mg/dL 2.0 Total Bilirubin (0.2-1.0) mg/dL 0.7 AST (15-37) U/L 38 H ALT (16-63) U/L 78 H Alkaline Phosphatase (46-116) U/L 123 H Troponin I (<or=60) ng/L < 50 Total Protein (6.4-8.2) g/dL 7.4 Albumin (3.4-5.0) g/dL 4.0 Range/Units 12/15/21 17:18 WBC (4.4-10.8) 10^3/uL RBC (4.36-5.78) 10^6/uL Hgb (13.5-17.5) g/dL Hct (40.0-50.0) % MCV (80-95) fL MCH (27.0-33.0) pg MCHC (32.0-36.0) % RDW (11.8-14.1) % Plt Count (130-400) 10^3/uL MPV (8.0-11.0) fL Immature Gran % Neutrophils % Lymphocytes % Monocytes % Eosinophils % Basophils % Nucleated RBC % % Absolute Neutrophils (1.2-6.7) 10^3/uL Absolute Lymphocytes (1.2-3.4) 10^3/uL Absolute Monocytes (0.1-0.8) 10^3/uL Absolute Eosinophils (0.0-0.7) 10^3/uL Absolute Basophils (0.0-0.2) 10^3/uL D-Dimer (<500) ng/mlFEU Sodium (136-145) mmol/L Potassium (3.5-5.1) mmol/L Chloride (98-107) mmol/L Carbon Dioxide (21.0-32.0) mmol/L Anion Gap (3-11) mmol/L BUN (7-18) mg/dL Creatinine (0.70-1.30) mg/dL Estimated GFR/1.73 m2 (mL/min/1.73m2) Glucose (74-106) mg/dL Calcium (8.5-10.1) mg/dL Magnesium (1.8-2.4) mg/dL Total Bilirubin (0.2-1.0) mg/dL AST (15-37) U/L ALT (16-63) U/L Alkaline Phosphatase (46-116) U/L Troponin I (<or=60) ng/L < 50 Total Protein (6.4-8.2) g/dL Albumin (3.4-5.0) g/dL Exam Const General: cooperative, healthy appearing, comfortable, no acute distress, not diaphoretic and not ill appearing Nutritional Appearance: average body habitus Orientation: alert, awake and oriented x3 Limitations: mental status not altered Neck Neck: normal visual inspection, trachea midline and no anterior neck swelling Resp Effort & Inspection: normal respiratory effort and able to speak in complete sentences Auscultation: clear to auscultation bilaterally Cardio Jugular venous pressure: no JVD Palpation: normal PMI Rate: regular rate Rhythm: regular rhythm Heart Sounds: S1 normal, S2 normal, no click, no gallops and no murmurs Pulses: radial pulses present bilaterally 2+ Skin General skin exam: no rashes or lesions noted Neuro General: patient alert, patient awake, patient oriented x3, tone normal and moves all extremities Sign Out Sign Out Data: Sign Out Comment: Chest pain intermittently x1 month. Work-up thus far unremarkable. Given a single dose of aspirin upon arrival. Now with negative work-up given a single dose of Toradol and awaiting delta troponin. If unremarkable and patient remains stable, likely discharge with PCP follow-up and outpatient stress Last updated by Tevin Payan PA at 12/15/21 15:49 Discharge Plan Disposition Patient Disposition: HOME Condition: Improving Discharge Details Clinical Impression: Chest pain Primary Care Provider: Luis Perrin ED Provider: Eddie Lyman Home Meds and New Rx's Prescriptions: Continued albuterol sulfate [ProAir HFA] 90 mcg/actuation HFA aerosol inhaler 2 puff Inhalation prior to exercise PRN (Reason: bronchospasm) Qty: 1 3RF esomeprazole magnesium 20 mg capsule,delayed release(DR/EC) 20 mg PO DAILY Qty: 90 4RF metoprolol succinate 25 mg tablet extended release 24 hr 25 mg PO DAILY Qty: 90 3RF rosuvastatin [Crestor] 5 mg tablet 5 mg PO DAILY Qty: 90 4RF lisinopril 20 mg tablet 20 mg PO DAILY Qty: 90 3RF Discharge Instructions Instructions: Chest Pain (ED) Additional Instructions: Your work-up today has not revealed a specific cause of your chest pain but it is reassuring that your EKGs have showed no acute worrisome findings and your lab work was also nondiagnostic. It will be very important for you to continue to take your normally prescribed medication as these will help both your cholesterol and your blood pressure and follow-up with your primary care provide r for further testing and treatment as needed. If you have any new or significant worsening of symptoms such as severe chest pain, lightheadedness, palpitations, sweating, or further concerns return immediately to the emergency department for reassessment. Referrals: Luis Perrin MD [Primary Care Provider] - 5 days
--- NOTE | 2021-12-15 18:15 | NUR.NOTE ---
Nursing Note: Referral given to Care Management for chest pain/consider stress test; 5 to 7 days; to PCP Luis Perrin. Ana Laura Flores
== END 2021-12-15 18:26 | disposition home or self-care (01) ==
PROVIDERS: Physician Assistant; Emergency Provider Nurse Practitioner Family; PCP Family Medicine
DX: R07.9 Chest pain, unspecified (principal)
CPT/HCPCS: 36415; 80053; 93005; 96374; 99284; 71046; 83735; 84484; 85025; 85379; 93010; J1885

== ENCOUNTER → 2022-01-03 00:09 | Outpatient (CLI) | payer OTHER, SELFPAY ==
--- NOTE | 2022-01-03 08:00 | ETT_ITS ---
APPROVED REPORT Exam: Exercise Treadmill Patient Location: Out-Patient Room/Bed: Stress Nurse: Layla Zepeda RN Ordering Provider:MAY MAN, Contact Number: [phone] BMI: 32.07 Baseline Rhythm: Sinus Tachycardia Indications: Recent chest pain Medical History Medical History: HTN, HLD, Tachycardia Cardiac Medications: Rosuvastatin, Metoprolol Succinate, Lisinopril Allergies: Kaufman, Environmental Cardiac Risk Factors: Family Hx, HTN, HLD Previous Cardiac Procedures: None Pretest Chest Pain Characteristics: None Exercise History: Sedentary Physical Disabilities: None Lung Sounds: Clear to auscultation Heart Sounds: Regular Stress Test Details Test: Exercise stress testing was performed using a Demarco protocol. Rest Stress HR Resting HR Supine: 107 bpm Max Heart Rate (APMHR): 172 bpm Resting HR Standin bpm Target HR (85% APMHR): 146 bpm Max HR Achieved: 182 bpm % of APMHR: 105 Recovery HR: 119 bpm HR response to stress: Normal HR response to stress Comment: Metoprolol Succinate held for 48 hours prior to stress test BP Resting BP Supine: 118/86 mmHg Resting BP Standin/88 mmHg Max BP: 162/82 mmHg Recovery BP: 132/78 mmHg BP response to stress: Normal blood pressure response to stress. ECG Resting ECG: Sinus Tachycardia Ectopy: None Stress ECG: Sinus Tachycardia ST Change: No significant ST segment changes noted Arrhythmia: Rare PAC, Occasional PVC's, couplet Comment: Increasing ectopy near end of exercise Recovery ECG: Sinus Tachycardia Recovery ST Change: No significant ST segment changes noted Recovery Arrhythmia: None Clinical Reason for Termination: Fatigue Stress Symptoms: General Fatigue Exercise duration: 9 min22 sec Highest Stage Reached: Stage 4: 4.2 mph at 16% grade. Exercise capacity: 10.76 METs Morris Treadmill Score: 8.3 Rate Pressure Product: 01997 Stress ECG Conclusion 1. The resting electrocardiogram showed poor R wave progression 2. Patient exercised on the Demarco protocol and completed a workload of 10.76 METS, stopping due to fa tigue 3. Normal heart rate and blood pressure response to exercise. Patient achieved greater than 100% of predicted heart rate for age 4. There was no electrocardiographic evidence of myocardial ischemia 5. PVCs were noted Morris Treadmill Score is 8.3 which is Low risk. Stress Test Summary STAGE Time (mins) Speed (mph) Grade (%) HR BP SYMPTOMS METS Supine 107 118/86 Standing 118 128/88 SpO2 97% 1 3 1.7 10 136 132/84 SpO2 96% 4.6 2 6 2.5 12 150 142/78 SpO2 95% 7 3 9 3.4 14 174 162/82 SpO2 95% 10.2 4 12 4.2 16 182 12.9 1 min recovery 164 158/72 SpO2 95% 3 min recovery 136 162/68 SpO2 96% 6 min recovery 119 132/78 SpO2 95%
== END ==
PROVIDERS: PCP Nurse Practitioner Family; Visit Provider Family Medicine
DX: R07.89 Other chest pain (principal)
CPT/HCPCS: 93017

== ENCOUNTER 2022-01-04 02:07 | Outpatient (CLI) | payer OTHER, SELFPAY ==
[2022-01-04 15:33] LABS: ALT 81 U/L (16-63); AST 38 U/L (15-37); Albumin 4.3 g/dL (3.4-5.0); Alkaline Phosphatase 128 U/L (46-116); Anion Gap 8.9 mmol/L (3-11); BUN 14 mg/dL (7-18); Bilirubin, Total 0.8 mg/dL (0.2-1.0); CO2 27.1 mmol/L (21.0-32.0); Calcium 8.7 mg/dL (8.5-10.1); Calculated LDL 110 mg/dL (<100); Chloride 103 mmol/L (98-107); Cholesterol 184 mg/dL (<200); Glucose 82 mg/dL (74-106); HDL Cholesterol 43 mg/dL (40-60); Sodium 139 mmol/L (136-145); Total Protein 7.3 g/dL (6.4-8.2); Triglyceride 155 mg/dL (<150)
[2022-01-05 09:12] LABS: Hepatitis B Surface Ag Negative (Negative)
[2022-01-05 09:40] LABS: Hepatitis C Ab w Rflx HCV PCR Negative (Negative)
[2022-01-05 09:49] LABS: HIV-1/2 Ag & Ab Screen Negative (Negative)
== END 2022-01-04 02:08 | disposition home or self-care (01) ==
LOC: LBO 02:07
PROVIDERS: PCP Nurse Practitioner Family; Visit Provider Family Medicine
DX: E78.5 Hyperlipidemia, unspecified (principal); I10 Essential (primary) hypertension; R74.8 Abnormal levels of other serum enzymes; R00.0 Tachycardia, unspecified; R07.9 Chest pain, unspecified; Z11.59 Encounter for screening for other viral diseases; Z11.4 Encounter for screening for human immunodeficiency virus [HIV]
CPT/HCPCS: 36415; 80053; 80061; 86803; 87340; 87389

== ENCOUNTER 2022-09-02 06:09 | Day surgery (SDC) | payer OTHER, SELFPAY ==
[2022-09-02 06:26] VITALS: BP 135/97; PULSE 107; RESP 16; TEMP 36.4; O2SAT 96
[2022-09-02] MEDS: Lactated Ringers 1,000 ML 80 ML IV (06:46)
--- NOTE | 2022-09-02 07:01 | W.ANESPRE ---
General Info Date of Service Date Performed: 09/02/22 Height: 5 ft 11 in Weight: 105.8 kg Body Mass Index (BMI): 32.5 Surgical Procedure: Operation Date: 09/02/22 07:35 Proposed Procedure Side Surgeon ariel Navarro MD Meds Allergies and Home Medications Allergies Allergy/AdvReac Type Severity Reaction Status Date / Time peach Allergy Severe difficulty Verified 09/02/22 06:24 swallowing Environmental Allergy Intermediate rhinorrhea Uncoded 09/02/22 06:24 Home Medication Medication Instructions Recorded albuterol sulfate 90 mcg/actuation 2 puff inhalation prior to 12/16/20 aerosol inhaler (ProAir HFA) exercise PRN bronchospasm ##1 metoprolol succinate 25 mg 25 mg PO DAILY #90 tabs 11/08/21 tablet,extended release 24 hr esomeprazole magnesium 20 mg 20 mg PO DAILY #90 caps 01/07/22 capsule,delayed release lisinopril 20 mg tablet 20 mg PO DAILY #90 tabs 05/06/22 rosuvastatin 5 mg tablet (Crestor) 5 mg PO DAILY #90 tabs 06/29/22 bisacodyl 5 mg tablet,delayed 5 mg PO ONCE #4 tabs 08/18/22 release (Dulcolax (bisacodyl)) polyethylene glycol 3350 17 17 g PO ONCE #238 grams 08/18/22 gram/dose oral powder Current Visit Medications: Current Medications Generic Name Dose Route Start Last Admin Trade Name Freq PRN Reason Stop Dose Admin Ringer's Solution 1,000 mls @ 80 mls/hr 09/02/22 06:00 09/02/22 06:46 IV 10/01/22 23:59 80 mls/hr INFUSION EUGENIO Administration IV Miscellaneous Supplies 1 each 09/02/22 06:00 Iv Access IV 10/01/22 23:59 DIRECTED EUGENIO Sodium Chloride 0 ml 09/02/22 06:00 Normal Saline Flush 10 Ml Syr IV 10/01/22 23:59 PRN PRN Sodium Chloride 0 ml 09/02/22 06:00 Normal Saline 10 Ml Vial IJ 10/01/22 23:59 DIRECTED PRN Sterile Water 0 ml 09/02/22 06:00 Water,Injection,Sterile 10 Ml Vial IJ 10/01/22 23:59 DIRECTED PRN PFSH Active Problems Active Problems: Problem Status Onset Code 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 Hyperlipidemia E78.5 Essential hypertension I10 Tachycardia R00.0 Irritable colon K58.9 Tubular adenoma of colon D12.6 Elevated liver enzymes R74.8 Screening for colon cancer Z12.11 Medical History Medical History Asthma GERD (gastroesophageal reflux disease) Surgical History Surgical History Cholecystectomy (06/20/14) History of colonoscopy History of esophagogastroduodenoscopy (EGD) Repair, ACL (~2002) Tobacco Smoking/Tobacco Use Status: Never Passive smoking exposure: Yes Second hand exposure: Yes Alcohol Alcohol Intake: current Alcohol intake frequency: holidays/special occasions only Alcohol type: hard liquor Substance Use Substance use: Never Substance use type: does not use Vital Signs and Lab Results Vital Signs Most Recent Vital Signs in EMR: Most Recent Vital Signs Temp Pulse Resp BP Pulse Ox 36.4 C L 107 H 16 135/97 H 96 09/02/22 06:26 09/02/22 06:26 09/02/22 06:26 09/02/22 06:26 09/02/22 06:26 Lab Results Blood Type / Crossmatch: No Data to Display Complete Blood Count: No Data to Display Complete Metabolic Panel: No Data to Display Liver Function Panel: No Data to Display Coagulation Panel: No Data to Display Cardiac Panel: No Data to Display Arterial Blood Gas: No Data to Display Venous Blood Gas: No Data to Display Pancreas Panel: No Data to Display Thyroid Panel: No Data to Display Infectious Disease: No Data to Display Blood Cultures: No Data to Display Toxicology Panel: No Data to Display Imaging and Studies Imaging and Studies Study information below may be from another EMR and interpreted by another provider. Please see original notes in EMR for more complete details. EKG Summary: 12/15/2021: ECG Measurements Heart Rate 70 AXIS NM 135 P 24 QRSd 102 QRS -16 QT 388 T1 QTc 420 Conclusion Sinus rhythm...normal P axis, V-rate 60- 99 Stress Test Summary: 01/03/2022: Stress ECG Conclusion 1. The resting electrocardiogram showed poor R wave progression 2. Patient exercised on the Demarco protocol and completed a workload of 10.76 METS, stopping due to fatigue 3. Normal heart rate and blood pressure response to exercise. Patient achieved greater than 100% of predicted heart rate for age 4. There was no electrocardiographic evidence of myocardial ischemia 5. PVCs were noted Morris Treadmill Score is 8.3 which is Low risk. Echocardiogram Summary: 11/26/2013: SUMMARY: Normal biventricular size and systolic function. Mild flow acceleration across the left ventricular outflow tract. No significant valvular pathology. Pulmonary artery pressures within normal limits. Atrial size within normal limits. Anesthesia Assessment and Plan Anesthesia History Personal History: No History of Anesthesia Complications Family History: No Family History of Anesthesia Complications Exercise Tolerance Exercise Tolerance: Metabolic Equivalents>4 Pertinent Negatives Pertinent Negatives: No Major Cardiovascular Symptoms or Complaints and No Major Pulmonary Symptoms or Complaints Cardiac & Pulmonary Exam Cardiac Exam: Normal S1/S2 Heart Sounds Pulmonary Exam: Clear Bilateral Breath Sounds Implantable Cardiac Device Does patient have a Pacemaker or an ICD?: No Airway Exam Known Difficult Airway: No Mallampati Class: 3 Mouth Opening: Narrow (< 3cm) Thyromental Distance: Greater than 3 cm Neck Range of Motion: Full ROM Neck Circumference: Thick Teeth Condition: Normal Dentition ASA Classification ASA Score: ASA 2 Emergency Case?: No NPO Status NPO Status: NPO Clears >2 hours, Solids >8 hours Anesthesia Plan Resuscitation Status: Full Code Anesthesia Technique: General Anesthesia Airway Planned: Natural Airway Monitors Used: Standard Monitors
[2022-09-02 07:05] VITALS: BMI 32.5
--- NOTE | 2022-09-02 07:59 | BOWEL_PTH ---
PATIENT: Balwinder Avina LOC: [facility] U#:[id number] AGE/SX: 47/M ROOM: RE09/02/[address]: Cl Navarro : 1975 BED: DIS: 09/02/2022 SPEC #: [id number] RECD: 09/02/22 08:53 STATUS: ANNITA RE #: [id number] SANDY: 09/02/22 07:[address]: Cl Navarro DEPT: Surgical Specimen RECD BY: Di Fraga ENTERED: 09/02/22 08:54 SP TYPE: Bowel OTHR DR: Robert Gramajo, SHIVAM Tissues: 1 - BIOPSY BOWEL Procedures: GROSS AND MICRO LEVEL 4 IMMUNOPEROXIDASE STAIN Comments: [id number]
[2022-09-02 08:10] VITALS: BP 114/76; PULSE 84; RESP 16; TEMP 36.2; O2SAT 92
--- NOTE | 2022-09-02 08:10 | COLE_ITS ---
Date of service: 09/02/22 Time of Service: 08:10 Colonoscopy Report Procedure Description: Procedures performed: 1. Colonoscopy with snare polypectomy x1 2. Fulguration/ablation/destruction of polyp x1 Preoperative diagnosis: Surveillance colonoscopy Postoperative diagnosis: Colon polyps Surgeon: Joe Navarro Anesthesia: Freida Indication for procedure: Patient is a 47-year-old man with no significant family history of colorectal cancer but personal history of previous adenomatous polyps removed. He has a history of IBS and on/off loose stools which he reports are currently controlled with medication. He does not have any bowel habit changes or new symptoms. Findings: Terminal ileum was normal. A 3 to 5 mm sessile polyp was removed from the ascending colon with hot snare technique.? The colonic mucosa is normal throughout. There was no diverticular disease. 2-3mm sessile polyp ablated in the rectum. Surveillance/follow-up recommendations: 3-10 years pending path results. Sessile serrated or tubulovillous histology would warrant 3 years, simple eliza noma 7 years, if hyperplastic by chance (not suspected) then 10 years. Complications: None Blood loss: Minimal Specimens:?? YES Quality of Prep:?? Good Procedure in detail: Written consent was obtained from the patient who was in agreement with the risks, benefits and indications of the procedure.? We went to the endoscopy suite and laid the patient in left lateral decubitus position.? Anesthesia was administered which was tolerated well.? A timeout was performed and when we are all in agreement we began the procedure. Digital rectal exam and visual examination was performed and within normal limits.? A well?lubricated colonoscope was advanced without difficulty all the way to the cecum identified by the ileocecal valve, and triangular folds and appendiceal orifice.? The terminal ileum was intubated and appeared normal. It was then slowly withdrawn.?? Retroflexion was performed in the rectum.? The findings/interventions are noted above. The scope was then removed and the patient tolerated the procedure well and was then taken back to the PACU in hemodynamically stable condition.
--- NOTE | 2022-09-02 08:22 | W.ANESPOSTOP ---
Postoperative Evaluation Date, Time and Location Date Performed: 09/02/22 Time Performed: 08:19 Patient Location: Day Surgery Unit Vital Signs Most Recent Imported Vital Signs: Most Recent Vital Signs Temp Pulse Resp BP Pulse Ox 36.2 C L 84 16 114/76 92 09/02/22 08:10 09/02/22 08:10 09/02/22 08:10 09/02/22 08:10 09/02/22 08:10 Pain Score Most Recent Pain Score: Most Recent Pain Score Pain Level 0 09/02/22 08:10 Assessment Mental Status: Awake (Alert & Oriented to Patient Baseline) Airway and Respiratory Function: Patent airway with normal (patient baseline) respiratory exam Cardiovascular Function: Hemodynamically Stable Hydration Status: Adequately Hydrated Nausea & Vomiting: No Nausea or Vomiting Pain: Pt. Denies Any Pain Peripheral Nerve Block: Patient did not receive a nerve block
[2022-09-02 08:34] VITALS: BP 132/94; PULSE 84; RESP 16; TEMP 36.3; O2SAT 97
== END 2022-09-02 08:45 | disposition home or self-care (01) ==
PROVIDERS: PCP Nurse Practitioner Family; Visit Provider Student in an Organized Health Care Education/Training Program
PROC: 0DJD8ZZ Inspection of Lower Intestinal Tract, Via Natural or Artificial Opening Endoscopic (ICD-10-PCS; CPT 45378; principal; 2022-09-02 07:30)
DX: Z12.11 Encounter for screening for malignant neoplasm of colon (principal); K63.5 Polyp of colon; Z86.010 Personal history of colon polyps; I10 Essential (primary) hypertension; E78.5 Hyperlipidemia, unspecified; J45.909 Unspecified asthma, uncomplicated
CPT/HCPCS: 45385; 88305; 88361

== ENCOUNTER 2023-06-20 02:30 | Outpatient (CLI) | payer OTHER, SELFPAY ==
[2023-06-20 15:08] LABS: CREATININE 1.1 mg/dL (0.70-1.30); Estimated GFR 82.29 (mL/min/1.73m2); Potassium 3.7 mmol/L (3.5-5.1)
== END 2023-06-20 02:31 | disposition home or self-care (01) ==
LOC: LBO 02:30
PROVIDERS: PCP Nurse Practitioner Family; Visit Provider Nurse Practitioner Family
DX: I10 Essential (primary) hypertension (principal)
CPT/HCPCS: 36415; 82565; 84132

== ENCOUNTER 2024-06-27 03:48 | Outpatient (CLI) | payer OTHER, SELFPAY ==
[2024-06-27 14:43] LABS: Hemoglobin A1C 5.9 % (<5.7)
[2024-06-27 15:19] LABS: ALT 37 U/L (16-63); AST 12 U/L (15-37); Albumin 4.2 g/dL (3.4-5.0); Alkaline Phosphatase 127 U/L (46-116); Anion Gap 11.9 mmol/L (3-11); BUN 13 mg/dL (7-18); CO2 24.1 mmol/L (21.0-32.0); CREATININE 1.1 mg/dL (0.70-1.30); Calculated LDL 84 mg/dL (<100); Chloride 106 mmol/L (98-107); Cholesterol 169 mg/dL (<200); Estimated GFR 81.28 (mL/min/1.73m2); Glucose 94 mg/dL (74-106); HDL Cholesterol 43 mg/dL (40-60); Potassium 3.7 mmol/L (3.5-5.1); Sodium 142 mmol/L (136-145); Total Protein 7.7 g/dL (6.4-8.2); Triglyceride 212 mg/dL (<150)
[2024-06-27 22:57] LABS: PSA, Screening 0.4 ng/mL (<=3.5)
== END 2024-06-27 03:49 | disposition home or self-care (01) ==
PROVIDERS: PCP Nurse Practitioner Family; Visit Provider Nurse Practitioner Family
DX: Z13.1 Encounter for screening for diabetes mellitus (principal); Z12.5 Encounter for screening for malignant neoplasm of prostate; Z13.220 Encounter for screening for lipoid disorders; E78.5 Hyperlipidemia, unspecified; I10 Essential (primary) hypertension
CPT/HCPCS: 36415; 80053; 80061; 84153; 83036

== ENCOUNTER 2024-10-28 14:33 | Emergency (ER) | payer OTHER, SELFPAY ==
[2024-10-28 14:38] VITALS: BP 149/89; PULSE 118; RESP 16; TEMP 36.6; O2SAT 94
--- NOTE | 2024-10-28 15:51 | DI.RAD_ITS ---
Exam(s) XR ANKLE LT COMPLETE EXAM: XR ANKLE LT COMPLETE CLINICAL HISTORY: L ankle pain TECHNIQUE: 2D digital imaging was performed. Three views. COMPARISON: No exams were available for comparison FINDINGS: BONES: No acute fracture is present. No bony destructive lesion is seen. Plantar calcaneal spur. JOINTS:The ankle mortise is normally aligned. SOFT TISSUE: Swelling around the malleoli. IMPRESSION: No acute abnormality. DATA REPOSITORY: RADIATION DOSE DELIVERED:
--- NOTE | 2024-10-28 16:10 | W.ED.GENAD ---
Discharge Plan Disposition Patient Disposition: Home Condition: Stable Discharge Details Clinical Impression: Sprain of left ankle Primary Care Provider: Robert Gramajo ED Provider: Yadiel Cali Home Meds and New Rx's Prescriptions: No Action albuterol sulfate [ProAir HFA] 90 mcg/actuation HFA aerosol inhaler 2 puff Inhalation prior to exercise PRN (Reason: bronchospasm) Qty: 1 3RF benzonatate 100 mg capsule 100 mg PO TID PRN (Reason: cough) Qty: 60 0RF lisinopril 30 mg tablet 30 mg PO DAILY Qty: 90 3RF rosuvastatin [Crestor] 5 mg tablet 5 mg PO DAILY Qty: 90 4RF metoprolol succinate 25 mg tablet extended release 24 hr 25 mg PO DAILY Qty: 90 3RF esomeprazole magnesium 20 mg capsule,delayed release(DR/EC) 20 mg PO DAILY Qty: 90 4RF Discharge Instructions Instructions: Ankle Sprain ED Additional Instructions: You were seen in the emergency department for the sprain of your left ankle, there is no fracture on x-ray. Please continue to rest, ice, compress and elevate the ankle often. Use your bracing as you have been. Please use therapeutic dosing of Tylenol (acetamenophen) & Advil (ibuprofen) in an alternating fashion as follows: Take 1000mg of Tylenol every 6 hours without missing doses- that is 4 times per day. Intermediate in between the Tylenol dosings, take 400-600mg of Advil also on a 6 hour schedule, that is also 4 times per day. The daily maximum dosing of Tylenol is 4000mg, and the daily maximum dosing of Advil is 2400mg. This is safe to do for weeks. Please note that some common cold medications & prescription pain medications may contain acetamenophen and you need to read OTC drug labels and factor that in to maximum daily dosings. If you have no improvement after 2 weeks please follow-up with outpatient orthopedics, please return for any severe signs of neurovascular compromise Referrals: [facility] [Provider Group] Robert Gramajo, DRILLING FIELD SPECIALIST [Primary Care Provider] - Discharge Data Discharge Date/Time-TO BE ENTERED AT DEPARTURE: 10/28/24 16:29 HPI General Date/Time Provider Initiated Documentation: 10/28/24 14:41. HPI Narrative: 49 year-old male presents to ED today by POV/ambulating with a chief complaint of L ankle pain, rolled it playing basketball with onset . Quality described as pain with amublation, no radiation to large swelling, numbness/tingling, inability to bear weight, proximal calf pain, endorses some bruising. Severity is described as moderate. Palliating factors include RICE and APAP/NSAIDs. Provoking factors include nothing specific. Events leading up to the incident/Associated Symptoms: Patient is R-foot dominant. Patient not anticoagulated. Related Data Home Medications ?Medication ?Instructions ?Recorded ?Confirmed albuterol sulfate 90 mcg/actuation 2 puff inhalation prior to 12/16/20 10/28/24 aerosol inhaler (ProAir HFA) exercise PRN bronchospasm ##1 rosuvastatin 5 mg tablet (Crestor) 5 mg PO DAILY #90 tabs 09/27/23 10/28/24 metoprolol succinate 25 mg 25 mg PO DAILY #90 tabs 11/02/23 10/28/24 tablet,extended release 24 hr benzonatate 100 mg capsule 100 mg PO TID PRN cough #60 caps 11/16/23 10/28/24 esomeprazole magnesium 20 mg 20 mg PO DAILY #90 caps 03/18/24 10/28/24 capsule,delayed release lisinopril 30 mg tablet 30 mg PO DAILY #90 tabs 06/12/24 10/28/24 Previous Rx's ?Medication ?Instructions ?Recorded albuterol sulfate 90 mcg/actuation 2 puff inhalation prior to 12/16/20 aerosol inhaler (ProAir HFA) exercise PRN bronchospasm ##1 rosuvastatin 5 mg tablet (Crestor) 5 mg PO DAILY #90 tabs 09/27/23 metoprolol succinate 25 mg 25 mg PO DAILY #90 tabs 11/02/23 tablet,extended release 24 hr benzonatate 100 mg capsule 100 mg PO TID PRN cough #60 caps 11/16/23 esomeprazole magnesium 20 mg 20 mg PO DAILY #90 caps 03/18/24 capsule,delayed release lisinopril 30 mg tablet 30 mg PO DAILY #90 tabs 06/12/24 Allergies Allergy/AdvReac Type Severity Reaction Status Date / Time peach Allergy Severe difficulty Verified 10/28/24 14:42 swallowing Environmental Allergy Intermediate rhinorrhea Uncoded 10/28/24 14:42 General Stated Complaint: Orthopedic PRAVEENA: 4 Review of Systems All systems reviewed & are unremarkable except as noted in HPI and below Exam Narrative Exam Narrative: GENERAL APPEARANCE: Well-nourished, non-toxic, awake and alert, atraumatic, no acute distress. SKIN: Warm, pink, dry, intact, without rashes/lesions/ulcerations. HEAD: Normocephalic, atraumatic, normal hair distribution for gender/age. EYES: Normal conjunctiva, no exudates on lids/lashes. ENT: Nares patent, no circumoral cyanosis, no facial swelling NECK: Supple, trachea midline, painless cervical ROM. LUNGS/CHEST: Non-labored respirations, normal A/P diameter, symmetrical expansion, no chest wall deformity HEART (CV/PV): Regular rate, L dorsalis pedis pulse 2+, no peripheral edema, no JVD. ABDOMEN: Soft, non-distended, no guarding. MSK: Normal ROM, no swelling/deformity to bilateral UEs or LEs, moving all extremities without weakness, no cyanosis, spine midline without tenderness, normal curvature, diffuse bruising to the medial heel and lateral malleolus, NV intact, no crepitus, no fibular head tenderness, no unilateral leg swelling. NEURO: Mental Status AAOx4 - alert to person, place, time, events No facial droop, no forehead involvement. Motor: No focal weakness - strength 5/5 in bilateral UEs and LEs, proximal and distal, symmetric. Sensory: sensation intact to light touch globally. Gait normal: patient ambulated without ataxia into ED room. PSYCH: euthymic, cooperative, pleasant, appropriate speech Course Vital Signs Vital signs: Vital Signs Temperature 36.6 C 10/28/24 14:38 Pulse 118 H 10/28/24 14:38 Respiratory Rate 16 10/28/24 14:38 Blood Pressure 149/89 H 10/28/24 14:38 Pulse Oximetry 94 10/28/24 14:38 Temperature 36.6 C 10/28/24 14:38 Temperature Source Oral 10/28/24 14:38 Pulse 118 H 10/28/24 14:38 Respiratory Rate 16 10/28/24 14:38 Blood Pressure 149/89 H 10/28/24 14:38 Blood Pressure Position Sitting 10/28/24 14:38 Pulse Oximetry 94 10/28/24 14:38 Oxygen Delivery Method Room Air 10/28/24 14:38 Oxygen Flow Rate 0 10/28/24 14:38 Pain Level 0 10/28/24 14:38 Medical Decision Making This dictation utilizes [id number] dictation software and may contain unedited grammatical errors. 49 year-old male presents to ED today by POV/ambulating with a chief complaint of L ankle pain, rolled it playing basketball with onset . Quality described as pain with amublation, no radiation to large swelling, numbness/tingling, inability to bear weight, proximal calf pain, endorses some bruising. Severity is described as moderate. Palliating factors include RICE and APAP/NSAIDs. Provoking factors include nothing specific. Events leading up to the incident/Associated Symptoms: Patient is R-foot dominant. Patients' medical history: Noncontributory. Family and social history: Noncontributory. Pertinent exam findings / vital signs include diffuse bruising to the medial heel and lateral malleolus, NV intact, no crepitus, no fibular head tenderness, no unilateral leg swelling. Differential / pathologies of concern include sprain, fracture. Diagnostic studies of: -XR L ankle-no acute abnormality. Interventions of: -Recommend continuing RICE and Tylenol and ibuprofen. ED Course/Assessment/Plan: 49-year-old male sprained his ankle on , x-rays negative for fracture, recommend symptomatic care at home and follow-up with orthopedics if necessary with persistent pain for 2 weeks or more. Findings not consistent with fracture, neurovascular compromise. Disposition of sprain of left ankle. Patient verbalized understanding of the plan and return to ED criteria and engaged in shared decision making. Medical Records Medical records reviewed: Yes I reviewed the patient's medical records. Imaging Data Radiologic Study: Attestation: I personally reviewed and interpreted this imaging study as follows: Imaging: X-Ray Radiologist's impression: EXAM: XR ANKLE LT COMPLETE CLINICAL HISTORY: L ankle pain TECHNIQUE: 2D digital imaging was performed. Three views. COMPARISON: No exams were available for comparison FINDINGS: BONES: No acute fracture is present. No bony destructive lesion is seen. Plantar calcaneal spur. JOINTS:The ankle mortise is normally aligned. SOFT TISSUE: Swelling around the malleoli. IMPRESSION: No acute abnormality. Quality:SDOH Health Related Social Needs: No Data to Display PFSH All Active Problems (Updated 10/28/24 @ 16:14 by DAVION Morrissey) Sprain of left ankle (Acute) Leal esophagus (Acute) Hyperlipidemia (Acute) Essential hypertension (Acute) Tachycardia (Acute) 11/2021-longstanding chronic sinus tachycardia, negative cardiac work-up 2013 Irritable colon (Chronic) Tubular adenoma of colon (Acute) colono due 2020 Elevated liver enzymes (Acute) 2021-presumed fatty liver syndrome Medical History (Updated 10/28/24 @ 16:14 by DAVION Morrissey) GERD (gastroesophageal reflux disease) Asthma Surgical History (Updated 10/27/22 @ 07:14 by Ana Brown RN) History of esophagogastroduodenoscopy (EGD) History of colonoscopy (~09/2022) Repair, ACL (~2002) Cholecystectomy (06/20/14) Family History (Updated 04/12/22 @ 10:51 by Amy Wilburn) Mother Diabetes Father Diabetes Heart disease Grandfather Diabetes Personal history of malignant neoplasm PROSTATE Heart disease Grandfather Diabetes Grandmother Diabetes Heart disease Social History (Updated 08/21/22 @ 19:04 by DAVION Carrero) Smoking/Tobacco Use Status: Never Second Hand Exposure: Yes Smoking risk assessment performed?: Yes Alcohol Intake: current Alcohol Intake frequency: holidays/special occasions only Alcohol type: beer and hard liquor Drug use: Never Substance use type: does not use Counseling given: No Adopted: No Household members: spouse and children Housing: house Communication Needs: None Do you need help understanding health information?: Rarely Pets and animals: Yes Pets and animals: cat(s) Sexually active: Yes Do you think of yourself as: straight/heterosexual Current gender identity: male What is your relationship status?: How often do you talk on the phone with friends or family?: never How often do you get together with friends or relatives?: three or more times per week How often do you attend yazidism or quaker services?: 1-3 times per year Do you belong to any clubs or organized social groups?: no Panel score (0-1 are the most socially isolated patients): 2 What type of physical activity do you participate in: walking Duration: < 15 minutes/day Frequency: 3-4 times per week Alice/Congregation: No preference Special alice needs: No Seatbelt use: always Helmet use: Yes Helmet use: always Drive intox or ride w/intox electric train driver: No PAWSS Have you Been Recently Intoxicated or Drunk Within the Last 30 days?: No Have you Ever Experienced Previous Episodes of Alcohol Withdrawal?: No Have you ever Experienced Withdrawal Seizures?: No Have you ever Experienced Delirium Tremens(DT)s?: No Have you ever undergone Alcohol Rehabilitation Treatment (i.e, inpt ot outpatient treatment programs)?: No Have you ever Experienced Blackouts?: No Have you ever Combined Alcohol with other Downers within the last 90 days?: No Have you ever Combined Alcohol with any other Substance of Abuse during the last 90 days?: No Positive Blood Alcohol level on Presentation? [PCS.BAL]: No Evidence of Increased Autonomic Activity (i.e. HR>120, tremor, sweating, agitation, nausea)?: No Result: 0
[2024-10-28 16:27] VITALS: BP 134/90; PULSE 90; RESP 16; O2SAT 100
== END 2024-10-28 16:29 | disposition home or self-care (01) ==
PROVIDERS: Emergency Provider Physician Assistant; PCP Nurse Practitioner Family
DX: S93.402A Sprain of unspecified ligament of left ankle, initial encounter (principal); X58.XXXA Exposure to other specified factors, initial encounter; Y93.67 Activity, basketball
CPT/HCPCS: 99283; 73610

== ENCOUNTER 2024-10-31 08:23 | Emergency (ER) | payer OTHER, SELFPAY ==
[2024-10-31 08:29] VITALS: BP 133/103; PULSE 95; RESP 16; TEMP 36.6; O2SAT 95
--- NOTE | 2024-10-31 08:30 | DI.RAD_ITS ---
Exam(s) XR ANKLE LT COMPLETE EXAM: XR ANKLE LT COMPLETE CLINICAL HISTORY: repeat injury, lateral ankle pain, swelling TECHNIQUE: 2D digital imaging was performed. Three views. COMPARISON: No exams were available for comparison FINDINGS: BONES: No acute fracture is present. No bony destructive lesion is seen. Plantar calcaneal spur are again noted. JOINTS:The ankle mortise is normally aligned. SOFT TISSUE: Severe swelling around the lateral malleolus, increasing from the previous exam. IMPRESSION: Severe lateral soft tissue swelling. No fracture is identified DATA REPOSITORY: RADIATION DOSE DELIVERED:
--- NOTE | 2024-10-31 08:41 | ED.GENADUL_ITS ---
Discharge Plan Disposition Patient Disposition: Home Condition: Good Discharge Details Chief Complaint: Orthopedic Clinical Impression: Left ankle sprain Primary Care Provider: Robert Gramajo ED Provider: Yadiel Rebolledo Home Meds and New Rx's Prescriptions: No Action albuterol sulfate [ProAir HFA] 90 mcg/actuation HFA aerosol inhaler 2 puff Inhalation prior to exercise PRN (Reason: bronchospasm) Qty: 1 3RF benzonatate 100 mg capsule 100 mg PO TID PRN (Reason: cough) Qty: 60 0RF lisinopril 30 mg tablet 30 mg PO DAILY Qty: 90 3RF rosuvastatin [Crestor] 5 mg tablet 5 mg PO DAILY Qty: 90 4RF metoprolol succinate 25 mg tablet extended release 24 hr 25 mg PO DAILY Qty: 90 3RF esomeprazole magnesium 20 mg capsule,delayed release(DR/EC) 20 mg PO DAILY Qty: 90 4RF Discharge Instructions Instructions: Ankle Sprain ED Additional Instructions: At this time your x-ray does not show any evidence of fracture. You likely have a ligamentous injury and sprain. Please keep the walking boot on for the next 1 to 2 weeks. Follow-up closely with your primary care provider for reassessment. If you still have notable pain or weakness and you may need to follow-up with an senior accounting specialist. Please take Tylenol and Motrin as needed for pain. If you notice any worsening of your symptoms, or any new symptoms such as vomiting, diarrhea, fever, chills, shortness of breath, chest pain, numbness, weakness, or fainting , please return immediately to the emergency department for reevaluation. Please follow up with your primary care provider as soon as possible for reassessment and reevaluation. As always, it was a pleasure participating in your medical care today. Referrals: Robert Gramajo, SHIVAM [Primary Care Provider] - HPI General Date/Time Provider Initiated Documentation: 10/31/24 08:34 . HPI Narrative: 49-year-old male presents for evaluation of left ankle pain. The patient injured his ankle about a week ago, he has been using a mild wrap for his ankle. It had been healing well and was nearly completely improved when he twisted it again yesterday morning while walking to work. He had sudden pain in the left aspect of his ankle and has developed worsening swelling since then. He denies any numbness or tingling. Pain is made worse with movement. He has been taking Tylenol for relief. He notes that the biggest change for relief is the compression bandage around his ankle. No other complaints at this time. Related Data Home Medications ?Medication ?Instructions ?Recorded ?Confirmed albuterol sulfate 90 mcg/actuation 2 puff inhalation prior to 12/16/20 10/28/24 aerosol inhaler (ProAir HFA) exercise PRN bronchospasm ##1 rosuvastatin 5 mg tablet (Crestor) 5 mg PO DAILY #90 tabs 09/27/23 10/28/24 metoprolol succinate 25 mg 25 mg PO DAILY #90 tabs 11/02/23 10/28/24 tablet,extended release 24 hr benzonatate 100 mg capsule 100 mg PO TID PRN cough #60 caps 11/16/23 10/28/24 esomeprazole magnesium 20 mg 20 mg PO DAILY #90 caps 03/18/24 10/28/24 capsule,delayed release lisinopril 30 mg tablet 30 mg PO DAILY #90 tabs 06/12/24 10/28/24 Previous Rx's ?Medication ?Instructions ?Recorded albuterol sulfate 90 mcg/actuation 2 puff inhalation prior to 12/16/20 aerosol inhaler (ProAir HFA) exercise PRN bronchospasm ##1 rosuvastatin 5 mg tablet (Crestor) 5 mg PO DAILY #90 tabs 09/27/23 metoprolol succinate 25 mg 25 mg PO DAILY #90 tabs 11/02/23 tablet,extended release 24 hr benzonatate 100 mg capsule 100 mg PO TID PRN cough #60 caps 11/16/23 esomeprazole magnesium 20 mg 20 mg PO DAILY #90 caps 03/18/24 capsule,delayed release lisinopril 30 mg tablet 30 mg PO DAILY #90 tabs 06/12/24 Allergies Allergy/AdvReac Type Severity Reaction Status Date / Time peach Allergy Severe difficulty Verified 10/31/24 08:39 swallowing Environmental Allergy Intermediate rhinorrhea Uncoded 10/31/24 08:39 General Stated Complaint: Orthopedic PRAVEENA: 4 Exam Narrative Exam Narrative: 1.Const: Well-nourished, Well-developed, appearing stated age 2.Eyes: PERRL, no conjunctival injection, and symmetrical lids. 3.ENT: Atraumatic external nose and ears. Moist MM. Neck: Symmetric, trachea midline, No thyromegaly. 4.CVS: +S1/S2, Peripheral pulses 2+ and equal in all extremities. Brisk capillary refill in all extremities. 5.RESP: Unlabored respiratory effort. Clear to auscultation bilaterally. No wheezes rales or rhonchi 6.GI: Soft, Nontender/Nondistended, No hepatosplenomegaly. No guarding or rebound. 7.MSK: Left ankle demonstrates notable swelling on the lateral aspect, minimal swelling medially, bruising is present medially and laterally, with some bruising extending to the toes. No tenderness in the foot itself or the calcaneus. Mild to moderate tenderness over the distal fibula. No distal tibial tenderness or gross deformity. 8.Skin: Warm, Dry. No rashes or lesions. 9.Neuro: electrical instrument repairer II-XII grossly intact. Sensation grossly intact, no focal neurologic deficits. 10.Psych: (AAO) x3. Appropriate mood and affect Course Vital Signs Vital signs: Vital Signs Temperature 36.6 C 10/31/24 08:29 Pulse 95 H 10/31/24 08:29 Respiratory Rate 16 10/31/24 08:29 Blood Pressure 133/103 H 10/31/24 08:29 Pulse Oximetry 95 10/31/24 08:29 Temperature 36.6 C 10/31/24 08:29 Temperature Source Oral 10/31/24 08:29 Pulse 95 H 10/31/24 08:29 Respiratory Rate 16 10/31/24 08:29 Blood Pressure 133/103 H 10/31/24 08:29 Blood Pressure Position Sitting 10/31/24 08:29 Pulse Oximetry 95 10/31/24 08:29 Oxygen Delivery Method Room Air 10/31/24 08:29 Oxygen Flow Rate 0 10/31/24 08:29 Pain Level 5 10/31/24 08:29 Comment 7/10 with movement or weight bearing 10/31/24 08:29 Medical Decision Making 49-year-old male presents for evaluation of left ankle pain. The patient injured his ankle about a week ago, he has been using a mild wrap for his ankle. It had been healing well and was nearly completely improved when he twisted it again yesterday morning while walking to work. He had sudden pain in the left aspect of his ankle and has developed worsening swelling since then. He denies any numbness or tingling. Pain is made worse with movement. He has been taking Tylenol for relief. He notes that the biggest change for relief is the compression bandage around his ankle. No other complaints at this time. Exam demonstrates swelling pain and tenderness over the lateral aspect/malleolus of the ankle. No gross deformity. No severe significant medial tenderness. No significant joint laxity's. Concern for worsening sprain and potential tearing of the anterior talofibular ligament, however with the persistent swelling and tenderness over the distal fibula, concern for potential osseous fracture there. Will get an x-ray, give walking boot for home support, monitor closely and reassess. 9:34 AM X-ray shows no evidence of fracture. Suspect notable worsening sprain. Will give walking boot for home. Recommend close follow-up with PCP for reassessment and potential orthopedic referral if indicated. Recommend continued NSAID therapy at home, as well as ice. Discussed red flags which to return. I have extensively reviewed the treatment plan and discharge instructions with the patient. I have addressed all patient concerns at this time. The patient was made aware of what symptoms to monitor for that would warrant a return to the emergency department. Discussed the plan with the patient, they demonstrate verbal understanding and agreement with our assessment and plan at this time. The documentation in this chart was dictated using [employer] dictation software. Please excuse any dictation errors. FINDINGS: BONES: No acute fracture is present. No bony destructive lesion is seen. Plantar calcaneal spur are again noted. JOINTS:The ankle mortise is normally aligned. SOFT TISSUE: Severe swelling around the lateral malleolus, increasing from the previous exam. IMPRESSION: Severe lateral soft tissue swelling. No fracture is identified Quality:SDOH Health Related Social Needs: No Data to Display PFSH All Active Problems (Updated 10/31/24 @ 09:36 by Yadiel Rebolledo DO) Left ankle sprain (Acute) Sprain of left ankle (Acute) Leal esophagus (Acute) Hyperlipidemia (Acute) Essential hypertension (Acute) Tachycardia (Acute) 11/2021-longstanding chronic sinus tachycardia, negative cardiac work-up 2013 Irritable colon (Chronic) Tubular adenoma of colon (Acute) colono due 2020 Elevated liver enzymes (Acute) 2021-presumed fatty liver syndrome Medical History (Updated 10/31/24 @ 09:36 by Yadiel Rebolledo DO) GERD (gastroesophageal reflux disease) Asthma Surgical History (Updated 10/27/22 @ 07:14 by Ana Brown RN) History of esophagogastroduodenoscopy (EGD) History of colonoscopy (~09/2022) Repair, ACL (~2002) Cholecystectomy (06/20/14) Family History (Updated 04/12/22 @ 10:51 by Amy Wilburn) Mother Diabetes Father Diabetes Heart disease Grandfather Diabetes Personal history of malignant neoplasm PROSTATE Heart disease Grandfather Diabetes Grandmother Diabetes Heart disease Social History (Updated 08/21/22 @ 19:04 by DAVION Carrero) Smoking/Tobacco Use Status: Never Second Hand Exposure: Yes Smoking risk assessment performed?: Yes Alcohol Intake: current Alcohol Intake frequency: holidays/special occasions only Alcohol type: beer and hard liquor Drug use: Never Substance use type: does not use Counseling given: No Adopted: No Household members: spouse and children Housing: house Communication Needs: None Do you need help understanding health information?: Rarely Pets and animals: Yes Pets and animals: cat(s) Sexually active: Yes Do you think of yourself as: straight/heterosexual Current gender identity: male What is your relationship status?: How often do you talk on the phone with friends or family?: never How often do you get together with friends or relatives?: three or more times per week How often do you attend caodaism or hoahaoism services?: 1-3 times per year Do you belong to any clubs or organized social groups?: no Panel score (0-1 are the most socially isolated patients): 2 What type of physical activity do you participate in: walking Duration: < 15 minutes/day Frequency: 3-4 times per week Alice/Orthodox: No preference Special alice needs: No Seatbelt use: always Helmet use: Yes Helmet use: always Drive intox or ride w/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
== END 2024-10-31 09:45 | disposition home or self-care (01) ==
PROVIDERS: Emergency Provider Student in an Organized Health Care Education/Training Program; PCP Nurse Practitioner Family
DX: S93.402A Sprain of unspecified ligament of left ankle, initial encounter (principal); X50.1XXA Overexertion from prolonged static or awkward postures, initial encounter; Y93.01 Activity, walking, marching and hiking; Y92.89 Other specified places as the place of occurrence of the external cause
CPT/HCPCS: 99283; 73610

== ENCOUNTER 2025-05-06 12:02 | Outpatient (CLI) | payer OTHER, SELFPAY ==
--- NOTE | 2025-05-06 06:00 | DI.MRI_ITS ---
Exam(s) MR LOWER JOINT LT WO EXAM: MR LOWER JOINT LT WO CLINICAL HISTORY: Failed PT,LT ANKLE INSTABILITY,M25.372 TECHNIQUE: Multiplanar multisequence MRI was performed without intravenous contrast. COMPARISON: CR XR ANKLE LT COMPLETE from 10/28/2024 CR XR ANKLE LT COMPLETE from 10/31/2024 FINDINGS: BONES/JOINTS: No fracture or contusion pattern. There is a small area of high signal in the medial talar dome. There is no visible overlying cartilage defect. The ankle mortise is maintained. No joint effusion is present. LIGAMENTS: The tibiofibular and calcaneofibular ligaments are intact. The the posterior talofibular ligament also appears thickened. No definite full- thickness tear. There is thickening of the deltoid ligament and the fibers appear in homogeneous, consistent with a sprain. The syndesmosis is unremar kable. Sinus tarsi is normal. MUSCULOTENDINOUS STRUCTURES: Achilles tendon: Unremarkable. Plantar fascia: Unremarkable. Anterior Extensor tendons: Unremarkable. Posterior Tibialis: Unremarkable. Flexor Digitorum longus: Unremarkable. Flexor Hallucis longus: Unremarkable. Peroneus longus: Unremarkable. Peroneus brevis:Unremarkable. SOFT TISSUES: Mild edema adjacent to the malleoli. IMPRESSION: Deltoid ligament sprain. Question of posterior talofibular ligament sprain. Small area of high signal in the medial talar dome without overlying 5 cartilage defect. No evidence of tendon tear. DATA REPOSITORY:
== END 2025-05-06 12:22 ==
PROVIDERS: PCP Nurse Practitioner Family; Visit Provider Nurse Practitioner Family
DX: M25.372 Other instability, left ankle (principal)
CPT/HCPCS: 73721

== ENCOUNTER 2025-06-19 05:19 | Outpatient (CLI) | payer OTHER, SELFPAY ==
[2025-06-19 13:46] LABS: Hemoglobin A1C 6.2 % (<5.7)
[2025-06-19 15:35] LABS: ALT 53 U/L (16-63); AST 24 U/L (15-37); Albumin 4.1 g/dL (3.4-5.0); Alkaline Phosphatase 115 U/L (46-116); Anion Gap 11.8 mmol/L (3-11); BUN 11 mg/dL (7-18); Bilirubin, Total 1.0 mg/dL (0.2-1.0); CO2 26.2 mmol/L (21.0-32.0); Calcium 9.1 mg/dL (8.5-10.1); Calculated LDL 72 mg/dL (<100); Chloride 100 mmol/L (98-107); Cholesterol 151 mg/dL (<200); Estimated GFR 103.40 (mL/min/1.73m2); Glucose 94 mg/dL (74-106); HDL Cholesterol 31 mg/dL (>or=40); Potassium 3.8 mmol/L (3.5-5.1); Sodium 138 mmol/L (136-145); TSH (W/Ref FT4) 1.64 uIU/mL (0.36-3.74); Total Protein 7.7 g/dL (6.4-8.2); Triglyceride 241 mg/dL (<150)
[2025-06-28 03:26] LABS: Testosterone, Free 53.0 pg/mL (35.0-155.0)
== END 2025-06-19 05:20 | disposition home or self-care (01) ==
LOC: LBO 05:19
PROVIDERS: PCP Nurse Practitioner Family; Visit Provider Nurse Practitioner Family
DX: E29.1 Testicular hypofunction (principal); Z13.220 Encounter for screening for lipoid disorders; I10 Essential (primary) hypertension; E03.9 Hypothyroidism, unspecified; Z13.1 Encounter for screening for diabetes mellitus
CPT/HCPCS: 36415; 80053; 80061; 84402; 84403; 83036; 84443